=== PATIENT | female | born 1995 | race African-American/Black ===

== ENCOUNTER 2018-10-21 01:36 | Emergency (ER) | payer SELFPAY ==
[2018-10-21] MEDS ORDERED: HYDROcodone/Acetaminophen 10/325 mg Tablet ONE ×2 (02:18→02:22)
[2018-10-21] MEDS ORDERED: Lidocaine 1% w/Epinephrine 1:100K 20 ML VIAL ONE (02:19)
[2018-10-21 03:55] LABS: Pregnancy Test - Urine (BHCG) Negative (Negative); Pregu Control Background? CLEAR/WHITE (CLR/WHITE); Pregu Control Bar Appear? YES (CONTROL BAR); Specific Gravity 1.016 (1.002-1.036)
--- NOTE | 2018-10-21 08:32 | CT ---
PRELIMINARY REPORT/[facility]/EMERGENTY AFTER-HOURS PROCEDURE CT Pelvis With Contrast EXAM DATE/TIME: 10/21/2018 4:06 AM CLINICAL HISTORY: 23 years old, female; Pain; Perianal pain; Patient HX: Er 3; Patient reports having rectal bleeding. Patient reports this started around 6 months ago and has worsen in the last 3 months. Quoc reports she has not followed up with a surgeon as she was told due to having " something like a hemorrhoid, but i don't have hemorrhoids. " patient reports she went to wipe [place] and noticed scant blood when wiping from front to back. Patient reports then wiping from back to front and noting blood to the eq uivalent to her menstrual period. TECHNIQUE: Axial computed tomography images of the pelvis with intravenous contrast. Coronal reformatted images were created and reviewed. COMPARISON: No relevant prior studies available. FINDINGS: Bowel: Visualized small bowel and colon are unremarkable. Appendix: No evidence of appendicitis. Bladder: The bladder is decompressed. No stones. Reproductive: Right ovarian probable corpus luteum. Intraperitoneal space: Trace pelvic fluid. No free air. Lymph nodes: No significant adenopathy. Bones/joints: No acute fracture. No dislocation. Soft tissues: Right posterior perineal subcutaneous high attenuation somewhat irregular focal density with surrounding stranding/edema extending into the cutaneous surface. IMPRESSION: Right perineal high attenuation irregular density described above; differential diagnosis includes he morrhage, phlegmon, infiltrative process/mass. Thank you for allowing us to participate in the care of your patient. Dictated and Authenticated by: Deondre Faust MD 10/21/2018 5:19 AM Central Time ([place] & [place]) FINAL REPORT BY DR. MENDEZ EMERGENCY AFTER HOURS STUDY CT PELVIS WITH CONTRAST: Date: 10/21/18 Time: 0408 hours HISTORY: 23-year-old female with perianal pain and rectal bleeding. FINDINGS: Moderately high density (higher than muscle) irregularly shaped lesion in the fat of the right paragl uteal fold, surrounded by edema (fat stranding), with involvement of the gluteal skin surface. Etiolo gy is uncertain. Possibilities include phlegmon and hemorrhage. This would be an unusual location for neoplasm. Recommend general surgery consultation. This report agrees with the preliminary report by [facility]. IMPRESSION: High density moderate size lesion in the right paragluteal fat of uncertain etiology. POS: [facility]
== END 2018-10-21 05:35 | disposition home or self-care (01) ==
LOC: ERS 01:36
DX: L02.31 Cutaneous abscess of buttock (principal); F17.210 Nicotine dependence, cigarettes, uncomplicated
CPT/HCPCS: 72193; 81025; J2001

== ENCOUNTER 2018-10-22 13:43 | Emergency (ER) | payer SELFPAY ==
[2018-10-22] MEDS ORDERED: HYDROcodone/Acetaminophen 10/325 mg Tablet ONE (14:12)
== END 2018-10-22 14:18 | disposition home or self-care (01) ==
LOC: ERS 13:43
DX: Z48.817 Encounter for surgical aftercare following surgery on the skin and subcutaneous tissue (principal); Z71.6 Tobacco abuse counseling; F17.210 Nicotine dependence, cigarettes, uncomplicated
CPT/HCPCS: 99406

== ENCOUNTER 2019-10-22 10:38 | Inpatient (IN) | payer MEDICAID, OTHER, SELFPAY ==
--- NOTE | 2019-10-22 12:01 | ULT ---
ULTRASOUND BIOPHYSICAL PROFILE: HISTORY: distress FINDINGS: A single live intrauterine gestation is seen. heart rate:143bpm TRISHA: 6.5 cm Placenta: Anterior without placenta previa OB biophysical profile: tone: 2 breathin movements: 2 Amniotic fluid: 2 IMPRESSION: The ultrasound biophysical profile score is 8 out of 8.
[2019-10-22 12:14] VITALS: BMI 35.2
[2019-10-22] MEDS ORDERED: Carboprost 250 MCG/ML AMP IM PRN (13:58)
[2019-10-22] MEDS ORDERED: Ibuprofen 800 MG TAB PO PRN (13:58)
[2019-10-22] MEDS ORDERED: Butorphanol Tartrate 1 MG/ML VIAL SLOW IVP PRN (13:58)
[2019-10-22] MEDS ORDERED: Misoprostol 200 MCG TAB PR PRN (13:58)
[2019-10-22] MEDS ORDERED: Methylergonovine 0.2 MG/ML VIAL IM PRN (13:58)
[2019-10-22] MEDS ORDERED: hydrALAZINE 20 MG/ML VIAL SLOW IVP PRN (13:58)
[2019-10-22] MEDS ORDERED: HYDROcodone/Acetaminophen 5/325 mg Tablet PO PRN (13:58)
[2019-10-22] MEDS ORDERED: NS / Oxytocin 40 units/1000ml 1,000 ML IV PRN (13:58)
[2019-10-22] MEDS ORDERED: Lidocaine 1% (PF) 30 ML VIAL SC PRN (13:58)
[2019-10-22] MEDS ORDERED: Diphenoxylate HCl/Atropine Tablet PO PRN (13:58)
[2019-10-22] MEDS ORDERED: Promethazine HCl 25 MG/ML VIAL IM PRN (13:58)
[2019-10-22] MEDS ORDERED: Ondansetron PF 4 MG/2 ML Vial IVP PRN (13:58)
[2019-10-22] MEDS ORDERED: NS w/ Oxytocin 10 units 500 ML IV SCH (14:00)
[2019-10-22] MEDS ORDERED: Penicillin G Potassium 5 MILL.UNITS in Sodium Chloride 0.9% 100 ML IVPB SCH (14:00)
[2019-10-22 14:01] LABS: #Basophils 0.1 thou/uL (0.0-0.2); #Eosinphils 0.1 thou/uL (0.0-0.7); #Lymphocytes 2.1 thou/uL (1.20-3.40); #Monocytes 1.2 thou/uL (0.11-0.59); #Neutrophils 12.1 thou/uL (1.40-6.50); %Basophils 0.3 % (0.0-1.0); %Eosinophils 0.5 % (0.0-10.0); %Lymphocytes 13.6 % (21.0-51.0); %Monocytes 7.9 % (0.0-10.0); %Neutrophils 77.6 % (42.0-75.0); Hemoglobin 13.1 g/dL (12.0-16.0); Mean Corpuscular HGB CONC 34.2 g/dL (32.0-36.0); Mean Corpuscular Hemoglobin 30.6 pg (27.0-31.0); Mean Corpuscular Volume 89.6 fL (78.0-98.0); Mean Platelet Volume 7.3 fL (7.4-10.4); Platelet Count 350 thou/uL (130-400); Red Blood Cell (RBC) Count 4.28 mill/uL (4.20-5.40); White Blood Cell (WBC) Count 15.6 thou/uL (4.8-10.8)
[2019-10-22 14:45] LABS: HBSAg Index 0.18 S/CO (0-0.99); HIV (1/2) Antibody/Antigen Non-Reactive (NonReactive); HIV 1/2 INDEX 0.12 S/CO (<1.00); Hep B Surf Ag Non-Reactive S/CO (NonReactive); Syphilis Antibody Nonreactive (Nonreactive); Syphilis Antibody Index 0.07 S/CO (<1.00 Non-Reactive)
[2019-10-22 15:04] LABS: Hemoglobin A1c 5.8 % (4.0-6.0)
--- NOTE | 2019-10-22 15:23 | ULT ---
LIMITED OB ULTRASOUND: HISTORY: Estimation of weight. FINDINGS: A single live intrauterine gestation is seen with measurements corresponding to an estimated gestatio nal age of 37 weeks 2 days and GUILLERMINA at 11/10/2019. The estimated weight measures 3228 gm or 7 claudette nds 2 ounces (23% by Hadlock criteria). measurements are as follows: BPD 8.67 cm, 35 weeks 0 days HC 33.43 cm, 38 weeks 2 days AC 34.22 cm, 28 weeks 1 day FL 7.24 cm, 37 weeks 0 days heart rate measures 144 b.p.m. Placenta is anteriorly located without evidence of placenta pre via. Amniotic fluid appears adequate. IMPRESSION: 1. Single live intrauterine of 37 weeks 2 days estimated gestational age and estimated preethi e of delivery at 11/18/2019. 2. Estimated weight is 3228 gm or 7 pounds 2 ounces. POS: [facility]
[2019-10-22] MEDS: Lactated Ringer's 1,000 ML IV SCH ×2 (16:33→23:10)
[2019-10-22] MEDS: Misoprostol 100 MCG TAB PO SCH ×2 (16:33→21:11)
[2019-10-22] MEDS ORDERED: HumaLOG 300 UNITS/3 ML VIAL SC SCH (19:15)
[2019-10-22] MEDS ORDERED: Terbutaline Sulfate 1 MG/ML VIAL ONE (23:29)
[2019-10-23] MEDS ORDERED: Terbutaline Sulfate 1 MG/ML VIAL SC SCH (01:00)
[2019-10-23] MEDS: Misoprostol 100 MCG TAB PO SCH ×3 (03:15→22:35)
[2019-10-23] MEDS: Penicillin G 2.5 MILL.units 2.5 MILL.UNITS in Premix Bag 1 BAG IVPB SCH ×2 (03:36→03:37)
[2019-10-23] MEDS: NS w/ Oxytocin 10 units 500 ML IV SCH (03:38)
[2019-10-23] MEDS: Lactated Ringer's 1,000 ML IV SCH ×2 (07:30→21:48)
[2019-10-24] MEDS: Misoprostol 100 MCG TAB PO SCH ×3 (03:00→15:53)
[2019-10-24] MEDS: Lactated Ringer's 1,000 ML IV SCH ×2 (07:00→18:31)
[2019-10-24] MEDS: Penicillin G 2.5 MILL.units 2.5 MILL.UNITS in Premix Bag 1 BAG IVPB SCH ×2 (10:01→14:46)
[2019-10-24] MEDS ORDERED: Misoprostol 100 MCG TAB ONE (15:16)
[2019-10-24] MEDS ORDERED: Diphenoxylate HCl/Atropine Tablet PO PRN (15:19)
[2019-10-25] MEDS: Dextrose 5%-Lactated Ringers 1,000 ML IV SCH ×2 (08:44→21:09)
[2019-10-25 08:55] LABS: #Eosinphils 0.1 thou/uL (0.0-0.7); #Lymphocytes 2.8 thou/uL (1.20-3.40); #Monocytes 1.3 thou/uL (0.11-0.59); #Neutrophils 9.3 thou/uL (1.40-6.50); %Basophils 0.1 % (0.0-1.0); %Eosinophils 0.7 % (0.0-10.0); %Lymphocytes 20.9 % (21.0-51.0); %Monocytes 9.5 % (0.0-10.0); %Neutrophils 68.8 % (42.0-75.0); Mean Corpuscular HGB CONC 33.6 g/dL (32.0-36.0); Mean Corpuscular Hemoglobin 30.1 pg (27.0-31.0); Mean Corpuscular Volume 89.6 fL (78.0-98.0); Mean Platelet Volume 7.3 fL (7.4-10.4); Platelet Count 383 thou/uL (130-400); RBC Distribution Width 11.8 % (11.5-14.5); Red Blood Cell (RBC) Count 4.64 mill/uL (4.20-5.40); White Blood Cell (WBC) Count 13.5 thou/uL (4.8-10.8)
[2019-10-25] MEDS ORDERED: CEFAZOLIN 2 GM in Premix Bag 1 BAG IVPB SCH (12:15)
[2019-10-25] MEDS ORDERED: Bicitra 30 ML UDCUP PO SCH (12:15)
[2019-10-25] MEDS ORDERED: Promethazine HCl 25 MG SUPP PR PRN (13:07)
[2019-10-25] MEDS ORDERED: Naloxone HCl 0.4 mg/ml Vial IVP PRN ×2 (13:07)
[2019-10-25] MEDS ORDERED: Promethazine HCl 25 MG/ML VIAL IM PRN ×2 (13:07→18:47)
[2019-10-25] MEDS ORDERED: Ondansetron HCl/PF 4 MG/2 ML Vial IVP PRN (13:07)
[2019-10-25] MEDS ORDERED: diphenhydrAMINE 50 MG/ML VIAL IVP PRN (13:07)
[2019-10-25] MEDS ORDERED: Ondansetron PF 4 MG/2 ML Vial IVP PRN ×2 (13:07→18:47)
[2019-10-25] MEDS ORDERED: Acetaminophen 1,000 MG in Premix Bag 1 BAG IVPB PRN (13:07)
[2019-10-25] MEDS ORDERED: Naloxone HCl 0.4 mg/ml Vial IV PRN (13:07)
[2019-10-25] MEDS ORDERED: Communication Order-Pharmacy FS SCH (13:15)
[2019-10-25] MEDS ORDERED: Bicitra 30 ML UDCUP ONE (14:15)
[2019-10-25] MEDS ORDERED: Fentanyl 100 MCG/2 ML VIAL ONE (14:23)
[2019-10-25] MEDS ORDERED: Ketorolac Tromethamine 30 MG/ML VIAL ONE ×2 (14:24→18:25)
[2019-10-25] MEDS ORDERED: Ondansetron PF 4 MG/2 ML Vial ONE (14:24)
[2019-10-25] MEDS ORDERED: MORPHINE 5 MG/10 ML PF VIAL ONE (14:24)
[2019-10-25] MEDS ORDERED: Oxytocin 10 UNITS/ML VIAL ONE (14:24)
[2019-10-25] MEDS ORDERED: Dexamethasone 4 mg/ml Vial ONE (14:24)
[2019-10-25] MEDS ORDERED: PHENYLEPHRINE-NS 100 MCG/ML 10 ML SYRINGE ONE (14:26)
[2019-10-25] MEDS: NS w/ Oxytocin 10 units 500 ML IV SCH ×3 (16:27→21:04)
[2019-10-25] MEDS: Penicillin G 2.5 MILL.units 2.5 MILL.UNITS in Premix Bag 1 BAG IVPB SCH ×5 (16:27→21:04)
[2019-10-25] MEDS: Lactated Ringer's 1,000 ML IV SCH ×2 (16:27→21:06)
[2019-10-25] MEDS: Ketorolac Tromethamine 30 MG/ML VIAL IVP SCH ×2 (18:26→23:38)
[2019-10-25] MEDS ORDERED: hydrALAZINE 20 MG/ML VIAL SLOW IVP PRN (18:47)
[2019-10-25] MEDS ORDERED: Bisacodyl 10 MG SUPP PR PRN (18:47)
[2019-10-25] MEDS ORDERED: Adacel (T-DAP) 0.5 ML SYRINGE IM ONE (18:47)
[2019-10-25] MEDS ORDERED: NS / Oxytocin 40 units/1000ml 1,000 ML IV SCH (18:47)
[2019-10-25] MEDS ORDERED: diphenhydrAMINE 25 MG CAP PO PRN (18:47)
[2019-10-25] MEDS: Ferrous Sulfate 325 MG TAB PO SCH (21:01)
[2019-10-25] MEDS: Docusate Calcium (SURFAK) 240 MG CAP PO SCH (21:41)
[2019-10-25] MEDS: Simethicone Chewable 80 MG TAB PO PRN (21:43)
[2019-10-26] MEDS ORDERED: Meperidine HCl/PF 25 MG/ML VIAL IM PRN (01:15)
[2019-10-26] MEDS: HYDROcodone/Acetaminophen 5/325 mg Tablet PO PRN ×5 (05:34→21:50)
[2019-10-26] MEDS: Ketorolac Tromethamine 30 MG/ML VIAL IVP SCH ×2 (05:34→14:21)
[2019-10-26 06:28] LABS: Hemoglobin 12.8 g/dL (12.0-16.0); Mean Corpuscular HGB CONC 33.9 g/dL (32.0-36.0); Mean Corpuscular Hemoglobin 30.3 pg (27.0-31.0); Mean Corpuscular Volume 89.4 fL (78.0-98.0); Mean Platelet Volume 7.4 fL (7.4-10.4); Platelet Count 388 thou/uL (130-400); RBC Distribution Width 11.8 % (11.5-14.5); Red Blood Cell (RBC) Count 4.23 mill/uL (4.20-5.40); White Blood Cell (WBC) Count 17.2 thou/uL (4.8-10.8)
[2019-10-26] MEDS: Simethicone Chewable 80 MG TAB PO PRN ×2 (09:21→21:50)
[2019-10-26] MEDS: Docusate Calcium (SURFAK) 240 MG CAP PO SCH ×2 (09:21→21:50)
[2019-10-26] MEDS: Prenatal Vitamin 1 TAB PO SCH (09:21)
[2019-10-26] MEDS: Ferrous Sulfate 325 MG TAB PO SCH ×2 (09:22→22:33)
[2019-10-26] MEDS: Ibuprofen 800 MG TAB PO SCH ×2 (14:42→21:50)
[2019-10-27] MEDS: Ibuprofen 800 MG TAB PO SCH ×2 (05:01→13:35)
[2019-10-27] MEDS: HYDROcodone/Acetaminophen 5/325 mg Tablet PO PRN ×3 (05:01→13:35)
[2019-10-27] MEDS: Docusate Calcium (SURFAK) 240 MG CAP PO SCH (09:03)
[2019-10-27] MEDS: Prenatal Vitamin 1 TAB PO SCH (09:03)
[2019-10-27] MEDS: Ferrous Sulfate 325 MG TAB PO SCH (09:03)
[2019-10-27 12:54] VITALS: BP 121/72; TEMP 98.3
--- NOTE | 2019-10-29 14:09 | OP ---
DATE OF PROCEDURE: 10/25/2019 PREOPERATIVE DIAGNOSES: 1. A 40 weeks' . 2. Gestational diabetes. 3. Failed induction. POSTOPERATIVE DIAGNOSES: 1. A 40 weeks' . 2. Gestational diabetes. 3. Failed induction. PROCEDURE PERFORMED: Primary low cervical transverse section. ANESTHESIA: Spinal. DESCRIPTION OF PROCEDURE: After informed consent were obtained for the patient, she was taken to the operating room, where spinal anesthesia was administered. She was then prepped and draped in the usual sterile fashion. A Pfannenstiel incision was created with a #10 scalpel blade and carried down to the fascia. The fascia was nicked in the midline and the fascial incision was extended transversely with Alberto scissors. The superior fascial segment was grasped with Abby's and elevated and the underlying rectus muscles were dissected free first bluntly and then sharply. This was repeated with the inferior fascial segment. The rectus muscles were divided in the midline bluntly. The peritoneum was entered bluntly. The bladder blade was inserted. The uterus was entered in a low-transverse fashion with a clean #10 scalpel blade. Membranes were ruptured with an Allis. Clear amniotic fluid was encountered. The vertex was delivered onto the operative field, followed by the remainder of the infant was delivered atraumatically. The oropharynx and nares were bulb suctioned. The cord was ligated and the infant was handed off to the staff in attendance. Cord blood was obtained. The placenta was manually extracted. The uterus was exteriorized and freed of clots and debris. The uterus was repaired with a running locking suture of 1 Monocryl in a single full-thickness layer followed by second imbricating layer. After which hemostasis was observed, the abdomen was copiously irrigated. Seprafilm was applied to the repaired uterine incision and the anterior uterine fundus. The uterus was then returned to the abdomen and hemostasis was again observed. The peritoneum was repaired with a running suture of 3-0 Vicryl. The fascia was repaired with a running suture of 0 PDS. Three interrupted sutures of 3-0 Vicryl were placed in the subdermal layer to reapproximate the skin, which was closed with skin velia. Sponge and instrument counts were correct x4. She tolerated the procedure well and suffered no acute complications. FINDINGS: Viable female , Apgars 8 and 9 at one and five minutes respectively. QBL: 605 mL. Job ID: [id number]
== END 2019-10-27 14:45 | disposition home or self-care (01) | DRG 788 ==
LOC: L&D/OP 10:38 → L&D-LIB 14:58 → 3SW 10-25 18:45
PROVIDERS: ADMIT Family Medicine; ATTEND Family Medicine
PROC: 10D00Z1 Extraction of Products of Conception, Low, Open Approach (ICD-10-PCS; principal; 2019-10-25)
DX: O24.429 Gestational diabetes mellitus in childbirth, unspecified control (principal); Z37.0 Single live birth; E66.9 Obesity, unspecified; Z3A.39 39 weeks gestation of pregnancy; O99.214 Obesity complicating childbirth
CPT/HCPCS: 36415; 36416; 51702; 76815; 76819; 83036; 85025; 85027; 86780; 86850; 86900; 86901; 87340; 87389; 99285; J0690; J1100; J1885; J2274; J2405; J2590; J3010; J3105

== ENCOUNTER 2020-11-20 00:40 | Emergency (ER) | payer OTHER, SELFPAY ==
[2020-11-20] MEDS ORDERED: Ketamine 50 MG/ML (10ML VIAL) ONE (01:54)
[2020-11-20] MEDS ORDERED: Midazolam HCl 5 mg/ml Vial ONE (03:00)
[2020-11-20 03:19] LABS: Mean Corpuscular HGB CONC 33.1 g/dL (32.0-36.0); Mean Corpuscular Hemoglobin 31.4 pg (27.0-31.0); Mean Corpuscular Volume 94.9 fL (78.0-98.0); Mean Platelet Volume 7.8 fL (7.4-10.4); Platelet Count 425 thou/uL (130-400); RBC Distribution Width 11.8 % (11.5-14.5); Red Blood Cell (RBC) Count 5.09 mill/uL (4.20-5.40); White Blood Cell (WBC) Count 24.1 thou/uL (4.8-10.8)
[2020-11-20 03:36] LABS: BHCG - Serum Negative (NEGATIVE); Pregs Control Background? CLEAR/WHITE (CLR/WHITE); Pregs Control Bar Appear? YES (CONTROL BAR)
[2020-11-20 03:38] LABS: ALT (SGPT) 9 U/L (8-55); AST (SGOT) 16 U/L (5-34); Albumin 4.7 g/dL (3.5-5.0); Alcohol Less than 10 mg/dL (Less than 10); Alkaline Phosphatase 66 U/L (40-110); Anion Gap 20 mmol/L (10-20); BUN (Urea Nitrogen) 6 mg/dL (7.0-18.7); Bilirubin, Total 0.5 mg/dL (0.2-1.2); CK (CPK) 115 U/L (29-168); Calc. Creatinine Clearance 0 mL/min (70-130); Calcium 9.6 mg/dL (7.8-10.44); Carbon Dioxide 17 mmol/L (22-29); Chloride 106 mmol/L (98-107); Globulin 3.4 g/dL (2.4-3.5); Glucose 151 mg/dL (70-105); Lipase 4 U/L (8-78); Potassium 3.6 mmol/L (3.5-5.1); Protein, Total 8.1 g/dL (6.0-8.3); Sodium 139 mmol/L (136-145)
[2020-11-20 03:55] LABS: Band 2 % (5-11); Lymphocytes 19 % (21-51); MDiff Complete? YES; Monocytes 6 % (0-10); Neutrophil 73 % (42-75); Platelet Morphology Comment Appears Increased; RBC Morphology Normal
[2020-11-20 04:49] LABS: Bacteria/HPF None Seen HPF (None Seen); Bilirubin Negative (Negative); Blood, Urine Negative (Negative); Clarity Clear (Clear); Glucose, Urine (Dipstick) Normal (Negative); Ketone, Urine Trace mg/dL (Negative); Leukocyte Negative Leu/uL (Negative); Nitrite Negative (Negative); Protein, Urine (Dipstick) 30 mg/dL (Neg-Trace); RBC/HPF 0-3 HPF (0-3); Specific Gravity, Urine 1.027 (1.002-1.036); Urobilinogen Normal mg/dL (Less than 2); WBC/HPF 0-3 HPF (0-3); pH, Urine 6.5 (5.0-9.0)
[2020-11-20 05:00] LABS: Amphetamine Not Detected (NotDetected); Barbiturates Screen Not Detected (NotDetected); Benzodiazepine Screen Not Detected (NotDetected); Cocaine Metabolite Screen Not Detected (NotDetected); Medtox Control Line Valid? VALID (VALID); Medtox Reader # READER 4; Methadone Not Detected (NotDetected); Methamphetamine Not Detected (NotDetected); Opiate Screen Not Detected (NotDetected); Oxycodone Screen Not Detected (NotDetected); Phencyclidine (PCP) Detected (NotDetected); THC/Cannabinoid Screen Detected (NotDetected); Tricyclic Screen Not Detected (NotDetected)
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
[2020-11-20] MEDS ORDERED: Iopamidol-370 76% 500 ML 1 ML ONE (14:19)
--- NOTE | 2020-11-22 14:15 | EKG ---
Test Reason : Blood Pressure : / mmHG Vent. Rate : 109 BPM Atrial Rate : 109 BPM P-R Int : 134 ms QRS Dur : 078 ms QT Int : 330 ms P-R-T Axes : 069 057 068 degrees QTc Int : 444 ms Sinus tachycardia Nonspecific ST and T wave abnormality Abnormal ECG Confirmed by BRANDI PATIÑO ([id number]), online editor LETY ANNA ([id number]) on 11/22/2020 2:14:44 PM Referred By: Confirmed By:BRANDI PATIÑO
== END 2020-11-20 04:20 | disposition home or self-care (01) ==
LOC: ERS 00:40
DX: R41.82 Altered mental status, unspecified (principal); F17.210 Nicotine dependence, cigarettes, uncomplicated; V49.9XXA Car occupant (driver) (passenger) injured in unspecified traffic accident, initial encounter
CPT/HCPCS: 36415; 70450; 71045; 72125; 74177; 80053; 80306; 80307; 81003; 81015; 82550; 83690; 84703; 85025; 93005; 96372; 96374; J2250; Q9967

== ENCOUNTER 2020-12-03 17:26 | Emergency (ER) | payer SELFPAY ==
[2020-12-03] MEDS ORDERED: Ketorolac Tromethamine 30 MG/ML VIAL ONE (19:18)
[2020-12-03] MEDS ORDERED: Diazepam 5 MG TAB ONE (19:24)
== END 2020-12-03 19:37 | disposition home or self-care (01) ==
LOC: ERS 17:26
DX: M54.5 Low back pain (principal); F17.210 Nicotine dependence, cigarettes, uncomplicated; X50.0XXA Overexertion from strenuous movement or load, initial encounter
CPT/HCPCS: 72100; 96372; J1885

== ENCOUNTER 2021-02-04 04:11 | Emergency (ER) | payer SELFPAY | END 2021-02-04 05:06 | LOC: ERS 04:11 | DX: Z00.8 Encounter for other general examination (principal); F17.210 Nicotine dependence, cigarettes, uncomplicated | CPT/HCPCS: 99283 ==

== ENCOUNTER 2021-03-02 18:15 | Emergency (ER) | payer SELFPAY | END 2021-03-02 18:55 | disposition home or self-care (01) | LOC: ERS 18:15 | DX: S60.312A Abrasion of left thumb, initial encounter (principal); F17.210 Nicotine dependence, cigarettes, uncomplicated; W31.89XA Contact with other specified machinery, initial encounter | CPT/HCPCS: 99281 ==

== ENCOUNTER 2021-04-18 12:18 | Emergency (ER) | payer SELFPAY | END 2021-04-18 14:40 | disposition home or self-care (01) | LOC: ERS 12:18 | DX: R03.0 Elevated blood-pressure reading, without diagnosis of hypertension (principal); F17.210 Nicotine dependence, cigarettes, uncomplicated | CPT/HCPCS: 99281 ==

== ENCOUNTER 2021-09-14 09:36 | Outpatient (CLI) | payer OTHER | END 2021-09-14 09:37 | disposition home or self-care (01) | LOC: BICULT 09:36 → EDSTATUS 10:00 | PROVIDERS: ATTEND Family Medicine | DX: O09.892 Supervision of other high risk pregnancies, second trimester (principal); Z3A.22 22 weeks gestation of pregnancy | CPT/HCPCS: 76805 ==

== ENCOUNTER 2023-01-28 10:14 | Emergency (ER) | payer OTHER ==
[2023-01-28 11:04] LABS: #Basophils 0.1 thou/uL (0.0-0.2); #Eosinphils 0.1 thou/uL (0.0-0.7); #Lymphocytes 2.6 thou/uL (1.20-3.40); #Monocytes 1.8 thou/uL (0.11-0.59); #Neutrophils 10.7 thou/uL (1.40-6.50); %Basophils 0.4 % (0.0-1.0); %Eosinophils 0.5 % (0.0-10.0); %Lymphocytes 17.2 % (21.0-51.0); %Monocytes 11.8 % (0.0-10.0); %Neutrophils 70.1 % (42.0-75.0); Hemoglobin 12.6 g/dL (12.0-16.0); Mean Corpuscular HGB CONC 33.3 g/dL (32.0-36.0); Mean Corpuscular Hemoglobin 32.1 pg (27.0-31.0); Mean Corpuscular Volume 96.4 fl (78.0-98.0); Platelet Count 470 10x3/uL (130-400); RBC Distribution Width 11.1 % (11.5-14.5); Red Blood Cell (RBC) Count 3.93 mill/uL (4.20-5.40); White Blood Cell (WBC) Count 15.3 10x3/uL (4.8-10.8)
[2023-01-28 11:25] LABS: ALT (SGPT) 17 U/L (8-55); AST (SGOT) 26 U/L (5-34); Albumin 3.9 g/dL (3.5-5.0); Alkaline Phosphatase 61 U/L (40-110); Anion Gap 16 mmol/L (10-20); BUN (Urea Nitrogen) 8 mg/dL (7.0-18.7); Bilirubin, Total 0.6 mg/dL (0.2-1.2); Calc. Creatinine Clearance 0 mL/min (70-130); Calcium 9.6 mg/dL (7.8-10.44); Carbon Dioxide 20 mmol/L (22-29); Chloride 103 mmol/L (98-107); Estimated GFR 124; Globulin 3.7 g/dL (2.4-3.5); Glucose 166 mg/dL (70-105); Potassium 3.9 mmol/L (3.5-5.1); Protein, Total 7.6 g/dL (6.0-8.3); Sodium 135 mmol/L (136-145)
[2023-01-28 11:36] LABS: INR-International Normal Ratio 1.1; Prothrombin Time 14.9 sec (12.0-14.7)
[2023-01-28] MEDS ORDERED: Ondansetron PF 4 MG/2 ML Vial ONE (12:20)
[2023-01-28] MEDS ORDERED: Clindamycin/D5W 600 mg/50 ml Premix Bag ONE (12:20)
[2023-01-28] MEDS ORDERED: Morphine 4 MG/ML VIAL ONE (12:20)
== END 2023-01-28 13:34 ==
LOC: ERS 10:14
DX: M79.605 Pain in left leg (principal); D72.829 Elevated white blood cell count, unspecified; F17.210 Nicotine dependence, cigarettes, uncomplicated
CPT/HCPCS: 36415; 71045; 80053; 83605; 85025; 85610; 85730; 87040; 93005; 96361; 96374; 96375; J2270; J2405; J3490

== ENCOUNTER 2023-07-26 21:23 | Emergency (ER) | payer OTHER | END 2023-07-26 23:14 | disposition home or self-care (01) | LOC: ERS 21:23 | DX: R00.0 Tachycardia, unspecified (principal); F17.210 Nicotine dependence, cigarettes, uncomplicated; V48.0XXA Car driver injured in noncollision transport accident in nontraffic accident, initial encounter | CPT/HCPCS: 93005; 96360 ==

== ENCOUNTER 2023-10-27 00:38 | Emergency (ER) | payer OTHER ==
[2023-10-27] MEDS ORDERED: Famotidine 20 MG TAB ONE (01:46)
[2023-10-27] MEDS ORDERED: Dexamethasone 10 MG/ML VIAL ONE (01:58)
== END 2023-10-27 02:10 | disposition home or self-care (01) ==
LOC: ERS 00:38
DX: L50.9 Urticaria, unspecified (principal); F17.210 Nicotine dependence, cigarettes, uncomplicated
CPT/HCPCS: 99282; J1100

== ENCOUNTER 2024-07-25 11:46 | Emergency (ER) | payer SELFPAY | END 2024-07-25 12:36 | disposition home or self-care (01) | LOC: ERS 11:46 | DX: Z02.89 Encounter for other administrative examinations (principal); F17.210 Nicotine dependence, cigarettes, uncomplicated | CPT/HCPCS: 99282 ==

== ENCOUNTER 2024-08-09 01:36 | Emergency (ER) | payer SELFPAY ==
[2024-08-09 01:58] LABS: #Basophils Less than 0.03 10x3/uL (0.0-0.2); %Basophils 0.1 % (0.0-1.0); %Eosinophils 1.5 % (0.0-10.0); %Lymphocytes 22.5 % (21.0-51.0); %Neutrophils 65.6 % (42.0-75.0); Hematocrit 45.4 % (36.0-47.0); Hemoglobin 15.1 g/dL (12.0-16.0); Mean Corpuscular HGB CONC 33.3 g/dL (32.0-36.0); Mean Corpuscular Hemoglobin 31.7 pg (27.0-31.0); Mean Corpuscular Volume 95.2 fL (78.0-98.0); Mean Platelet Volume 9.2 fL (7.4-10.4); Platelet Count 342 10x3/uL (130-400); RBC Distribution Width 12.3 % (11.5-14.5); Red Blood Cell (RBC) Count 4.77 mill/uL (4.20-5.40)
[2024-08-09 02:11] LABS: Bacteria/HPF 1+ HPF (None Seen); Bilirubin Negative (Negative); Blood, Urine Negative (Negative); CAUTI Indications for Culture Pelvic or flank pain; Clarity Turbid (Clear); Glucose, Urine (Dipstick) Normal (Negative); Ketone, Urine Negative (Negative); Leukocyte Negative Leu/uL (Negative); Nitrite Negative (Negative); Protein, Urine (Dipstick) Negative (Neg-Trace); RBC/HPF 0-3 HPF (0-3); Specific Gravity, Urine 1.001 (1.002-1.036); Urobilinogen Normal mg/dL (Less than 2); WBC/HPF 0-3 HPF (0-3); pH, Urine 6.5 (5.0-9.0)
[2024-08-09 02:12] LABS: Pregnancy Test - Urine (BHCG) Negative (Negative); Pregu Control Background? CLEAR/WHITE (CLR/WHITE); Pregu Control Bar Appear? YES (CONTROL BAR); Specific Gravity 1.001 (1.002-1.036); Urine Culture Reflex No No
[2024-08-09 02:14] LABS: ALT (SGPT) 10 U/L (8-55); AST (SGOT) 12 U/L (5-34); Albumin 3.8 g/dL (3.5-5.0); Alkaline Phosphatase 96 U/L (40-110); Anion Gap 13 mmol/L (10-20); BUN (Urea Nitrogen) 9 mg/dL (7.0-18.7); Bilirubin, Total 0.6 mg/dL (0.2-1.2); Calc. Creatinine Clearance 0 mL/min (70-130); Carbon Dioxide 20 mmol/L (22-29); Chloride 108 mmol/L (98-107); Estimated GFR 125; Globulin 3.1 g/dL (2.4-3.5); Glucose 193 mg/dL (70-105); Lipase 11 U/L (8-78); Potassium 3.6 mmol/L (3.5-5.1); Protein, Total 6.9 g/dL (6.0-8.3); Sodium 137 mmol/L (136-145)
[2024-08-09] MEDS ORDERED: Ondansetron ODT 4 MG TAB ONE (04:01)
[2024-08-09] MEDS ORDERED: Dicyclomine 20 MG TAB ONE (04:03)
== END 2024-08-09 04:11 | disposition home or self-care (01) ==
LOC: ERS 01:36
DX: R10.9 Unspecified abdominal pain (principal); R11.2 Nausea with vomiting, unspecified; F17.210 Nicotine dependence, cigarettes, uncomplicated
CPT/HCPCS: 36415; 80053; 81001; 81025; 83690; 85025; 99284; Q0162

== ENCOUNTER 2024-08-20 10:26 | Emergency (ER) | payer SELFPAY ==
[~2024-08-20 10:26] MED LIST: Iopamidol-370 76% 500 ML MDV (1 ML CHARGE) ONE
[2024-08-20 11:01] LABS: #Basophils Less than 0.03 10x3/uL (0.0-0.2); %Basophils 0.2 % (0.0-1.0); %Eosinophils 1.4 % (0.0-10.0); %Monocytes 8.7 % (0.0-10.0); %Neutrophils 61.5 % (42.0-75.0); Hemoglobin 14.4 g/dL (12.0-16.0); Mean Corpuscular HGB CONC 34.3 g/dL (32.0-36.0); Mean Corpuscular Hemoglobin 31.2 pg (27.0-31.0); Mean Corpuscular Volume 91.1 fL (78.0-98.0); Mean Platelet Volume 9.6 fL (7.4-10.4); Platelet Count 368 10x3/uL (130-400); RBC Distribution Width 12.5 % (11.5-14.5); Red Blood Cell (RBC) Count 4.61 mill/uL (4.20-5.40)
[2024-08-20] MEDS ORDERED: Ketorolac Tromethamine 30 MG (1 mL) VIAL ONE (11:11)
[2024-08-20] MEDS ORDERED: Dicyclomine 20 MG TAB ONE (11:11)
[2024-08-20 11:18] LABS: ALT (SGPT) 10 U/L (8-55); AST (SGOT) 14 U/L (5-34); Albumin 3.9 g/dL (3.5-5.0); Alkaline Phosphatase 70 U/L (40-110); Anion Gap 11 mmol/L (10-20); BUN (Urea Nitrogen) 11 mg/dL (7.0-18.7); Bilirubin, Total 0.6 mg/dL (0.2-1.2); Calc. Creatinine Clearance 0 mL/min (70-130); Calcium 9.1 mg/dL (7.8-10.44); Carbon Dioxide 23 mmol/L (22-29); Chloride 111 mmol/L (98-107); Estimated GFR 126; Glucose 106 mg/dL (70-105); Lipase 11 U/L (8-78); Potassium 3.6 mmol/L (3.5-5.1); Protein, Total 6.9 g/dL (6.0-8.3); Sodium 141 mmol/L (136-145)
[2024-08-20 11:21] LABS: Bacteria/HPF None Seen HPF (None Seen); Bilirubin Negative (Negative); Blood, Urine Negative (Negative); CAUTI Indications for Culture Dysuria,urgency,freq; Clarity Clear (Clear); Glucose, Urine (Dipstick) Normal (Negative); Ketone, Urine Negative (Negative); Leukocyte 75 Leu/uL (Negative); Nitrite Negative (Negative); Protein, Urine (Dipstick) 10 mg/dL (Neg-Trace); RBC/HPF None Seen HPF (0-3); Specific Gravity, Urine 1.028 (1.002-1.036); WBC/HPF 0-3 HPF (0-3)
[2024-08-20 11:23] LABS: Pregnancy Test - Urine (BHCG) Negative (Negative); Pregu Control Background? CLEAR/WHITE (CLR/WHITE); Pregu Control Bar Appear? YES (CONTROL BAR); Specific Gravity 1.028 (1.002-1.036); Urine Culture Reflex No No
== END 2024-08-20 13:14 | disposition home or self-care (01) ==
LOC: ERS 10:26
DX: R10.84 Generalized abdominal pain (principal); K59.00 Constipation, unspecified; F17.210 Nicotine dependence, cigarettes, uncomplicated; Z55.0 Illiteracy and low-level literacy
CPT/HCPCS: 36415; 74177; 80053; 81001; 81025; 83690; 85025; 96374; J1885; Q9967

== ENCOUNTER 2024-12-02 16:39 | Emergency (ER) | payer OTHER | END 2024-12-02 17:15 | LOC: ERS 16:39 | DX: L02.31 Cutaneous abscess of buttock (principal); F17.210 Nicotine dependence, cigarettes, uncomplicated | CPT/HCPCS: 99283 ==